=== PATIENT | male | born 1980 ===

== ENCOUNTER 2025-04-10 09:18 | Emergency (ER) | payer MEDICAID, SELFPAY ==
[2025-04-10 09:21] VITALS: BP 147/72; PULSE 97; RESP 16; TEMP 36.9; O2SAT 93; BMI 33.5
[2025-04-10 09:32] VITALS: BP 147/72; PULSE 97; RESP 16; TEMP 36.9; O2SAT 93
--- NOTE | 2025-04-10 09:36 | PC.NURSE ---
44 M presents to ED with ulcer on buttocks x 1 week, unknown cause. Pt denies any drainage at the site, c/o 5/10 pain. Pt is ambulatory, A+Ox4, calm, cooperative. RR even and unlabored, denies CP or SOB.
--- NOTE | 2025-04-10 10:32 | ED.SKABFB ---
HPI - Skin/Abscess/Foreign Bdy General Chief complaint: Skin/Abscess/Foreign Body Stated complaint: abscess lower back Time Seen by Provider: 04/10/25 09:46 Source: patient, RN notes reviewed and old records reviewed Mode of arrival: ambulatory History of Present Illness ED Provider: Dorita Nicole PA-C HPI narrative: 44-year-old male w/ past medical history DM presenting to the ED complaining of painful abscess to low back/upper buttock x 2 weeks. Patient admits to similar symptoms in the past, failed to follow up with General surgery outpatient. Denies active drainage, fever/chills, difficulty having BM, dysuria/hematuria Related Data Previous Rx's ?Medication ?Instructions ?Recorded cephalexin 500 mg capsule 500 mg PO QID 7 days #28 caps 04/10/25 doxycycline hyclate 100 mg tablet 100 mg PO BID 7 days #14 tabs 04/10/25 Allergies Allergy/AdvReac Type Severity Reaction Status Date / Time No Known Allergies Allergy Verified 04/10/25 09:23 Review of Systems Review of Systems: Yes all other systems are reviewed and are negative Constitutional: Constitutional: Reports as per [facility] Past Medical History Attestation statement: The following information was validated with the patient. Source: old records reviewed Social History Social History Smoked in Last 30 Days: No Use of substances other than those prescribed or required for medical reasons: No Advance Directives: No Advance Directives Information Provided: Yes Do you have a plan to hurt others: No Plan Physical Exam Vital Signs: Vital Signs: Last Vital Signs Temp 0 F L 04/10/25 12:21 Pulse 101 H 04/10/25 12:21 Resp 18 04/10/25 12:21 BP 133/80 04/10/25 12:21 Pulse Ox 93 04/10/25 12:21 O2 Del Method Room Air 04/10/25 09:32 BMI result Body Mass Index 33.5 Const: General: cooperative, healthy appearing and no acute distress Orientation/consciousness: patient oriented x3 Limitations: no limitations HEENT: Head: Yes normal to inspection and Yes atraumatic Ears: hearing grossly normal bilaterally General nose exam: Normal external nose present Face and sinus: Yes normal facial exam Eyes: General: appearance normal, both eyes and all related structures EOM: EOMs intact bilaterally Neck: Neck: Yes normal visual inspection and Yes no meningeal signs Resp: Effort & Inspection: normal respiratory effort and no respiratory distress Cardio: Rate: regular rate Skin: Other: + fluctuant and indurated pilonidal cyst appreciated with surrounding cellulitis. Tender to palpation. No streaking. No perianal/perirectal involvement Rashes: no rashes Neuro: General: patient oriented x3, tone normal and no meningeal signs Cranial nerves: Yes CN's II-XII intact bilaterally Gait exam (Neuro): Normal gait present Extrem: General: Yes normal to inspection Course Course Course Narrative: -I&D successful. Packing placed. Patient to return to the ED in 2 or 3 days for packing removal. Recommended general surgery follow up. Results discussed with patient including worrisome signs and symptoms and strict return precautions, and when to return to the emergency department. They verbalized understanding and feel safe for discharge at this time. Medications Administered Discontinued Medications Generic Name Dose Route Start Last Admin Trade Name Freq PRN Reason Stop Dose Admin Lidocaine/Epinephrine 10 ml 04/10/25 09:54 04/10/25 10:38 Lidocaine Hcl 1%/Epi 1:100,000 20 Ml Vial INFILTRATI 04/10/25 09:55 10 ml ONCE ONE Administration Medical Decision Making Medical Decision Making [facility] Narrative: 44-year-old male w/ past medical history DM presenting to the ED complaining of painful abscess to low back/upper buttock x 2 weeks. On exam vital signs stable, NAD, nontoxic appearing, physical exam as noted above with pilonidal cyst with overlying cellulitis. Will need I&D. No evidence of Nader's gangrene at this time. No evidence of perirectal/perianal abscess Plan: I & D, p.o. antibiotics, general surgery follow-up Please refer to course for remaining clinical decision making, interpretation of labs/imaging results, and discussions with consultants and/or family members. Differential Diagnosis Differential Diagnoses: The differential diagnosis associated with the presentation includes As above External Record Review External record reviewed: Inpatient record, Office record, Outpatient record, Prior outpatient labs, Prior outpatient radiology, Primary care record and Outside ED record Tests considered The following testing was considered but not selected: As above Prescription Management I considered prescription management with: Pain Medication and Antibiotic Chronic Conditions Patient?s care impacted by: Diabetes Social Determinants Patient?s care significantly limited by Social Determinants of Health including: Other Social Determinant of Health Procedures Abscess I/D Site: other (Pilonidal) Local Anesthetic: lidocaine 1% Amount of anesthesia used (mL): 4 Technique: incised with blade Sent for culture/gram staining?: Yes Packing used?: iodoform Discharge Plan Discharge Clinical Impression: Pilonidal cyst, Cellulitis Patient Disposition: Home, Self-Care Instructions: Cellulitis (ED) Additional Instructions: Your abscess was drained today in the ED Packing was placed. Please return in 2 or 3 days for packing removal Doxycycline and Keflex are antibiotics please take as prescribed until completion Please have close follow-up with your doctor as well as general surgery If area is growing, continues to drain, you have fever, chills, inability to have bowel movement or urinate return to the emergency department Prescriptions: New cephalexin 500 mg capsule 500 mg PO QID 7 Days Qty: 28 0RF doxycycline hyclate 100 mg tablet 100 mg PO BID 7 Days Qty: 14 0RF Referrals: [facility] General Surgeons [Provider Group, General Surgery] - 1 week Physician,Nonstaff [Primary Care Provider, Medical] - 2 days Referral Note: For packing removal Interventions: ED Discharge Assessment Last Done: 04/10/25 12:21 Discharge Date/Time: 04/10/25 12:22 Print Language: Bulgarian
[2025-04-10] MEDS: Lidocaine HCl 1%/Epi 1:100,000 20 ML VIAL 10 ML INFILTRATI (10:38)
[2025-04-10 12:19] VITALS: BP 133/80; PULSE 101; RESP 18; O2SAT 93
[2025-04-10 12:21] VITALS: BP 133/80; PULSE 101; RESP 18; TEMP -17.7; TEMP 0; O2SAT 93
== END 2025-04-10 12:22 | disposition home or self-care (01) ==
PROVIDERS: Emergency Provider Emergency Medicine
DX: L02.212 Cutaneous abscess of back [any part, except buttock and flank] (principal); L03.312 Cellulitis of back [any part except buttock and flank]; M54.50 Low back pain, unspecified
CPT/HCPCS: 10060; 99284; J2004

== ENCOUNTER 2025-04-12 10:01 | Emergency (ER) | payer MEDICAID, SELFPAY ==
--- OUTSIDE RECORDS SUMMARY | 2013-09-12 06:45 | XMS_ITS | Continuity of Care Document ---
Author Organization Carlos Magallon [facility] Address [address] [place] [address] Phone Care Team Providers Care Industrial Hygienist Name Role Phone Unavailable Unavailable Unavailable Medications [...] Diagnostic Eval (no Medical Service) Carlos Gilman [facility], [address] [place] [address],[address], [place], [place], [id number], [place] tel:[phone] [facility] depression (chief complaint)a nxiety (chief complaint)s ubstance abuse (chief complaint) Major depressive affective disorder, recurrent episode, moderate degreePanic disorder without agoraphobiaO pioid type dependence, unspecified useOther unknown and unspecified cause of morbidity or mortality 4 No Information OFFICE/OUTPAT IENT VISIT, EST [facility], [address], [place], [place], [id number], [place] tel:[phone] [facility] INITIAL VISIT (chief complaint)k nee pain (chief complaint)c hronic conditions (chief complaint) Opioid type dependence, unspecified useMajor depressive affective disorder, single episode, unspecified degreeHypert ension, BenignUnspec ified viral hepatitis C without hepatic comaBilatera l chronic knee pain 4 Philip Kortney. [address] [place] [address], [id number]. tel:[phone] OFFICE/OUTPAT IENT VISIT, EST [facility], [address], [place], [place], [id number], [place] tel:[phone] [facility] Anxiety/ Depression (chief complaint)h ypertension (follow up) (chief complaint)H epatitis C (chief complaint)S ubstance Abuse (chief complaint) Hypertension , BenignMajor depressive affective disorder, recurrent episode, severe degree, without mention of psychotic behaviorUnsp ecified viral hepatitis C without hepatic comaHeroin addiction 3 No Information [facility], [address], [place], [place], [id number], [place] tel:[phone] [facility] Elevated blood pressure reading without diagnosis of hypertension 0 No Information [facility], [address], [place], [place], [id number], [place] tel:[phone] Converted Locations No Information 0 Z-Converted Provider. . [facility], [address], [place], [place], [id number], [place] tel:[phone] [facility] NEED FOR PROPHYLACTIC VACCINATION AND INOCULATION, INFLUENZANee d for other specified prophylactic measure 0 No Information [facility], [address], [place], [place], [id number], [place] tel:[phone] [facility] Opioid type dependence, unspecified use 8 Z-Converted Provider. . [facility], [address], [place], [place], [id number], [place] tel:[phone] [facility] Posttraumati c stress disorder 8 Z-Converted Provider. . [facility], [address], [place], [place], [id number], [place] tel:[phone] [facility] Unspecified viral hepatitis C without hepatic comaRoutine general medical examination at a health care facility 8 No Information [facility], [address], [place], [place], [id number], [place] tel:[phone] [facility] Unspecified psychosis 8 Z-Converted Provider. . [facility], [address], [place], [place], [id number], [place] tel:[phone] [facility] Major depressive affective disorder, single episode, severe degree, specified as with psychotic behaviorMajo r depressive affective disorder, recurrent episode, severe degree, without mention of psychotic behavior 8 Z-Converted Provider. . [facility], [address], [place], [place], [id number], [place] tel:[phone] [facility] Depressive disorder, not elsewhere classified 8 No Information [facility], [address], [place], [place], [id number], [place] tel:[phone] [facility] Pain in joint involving lower leg [...]
--- OUTSIDE RECORDS SUMMARY | 2025-01-26 05:15 | XMS_ITS ---
Author Organization [facility] Address [address] [place] [address] Care Team Providers Care Pricing Intern Name Role Phone NO, PCP Primary Care Provider Roro Navarro Social History Sex Assigned At : Social History Observation Description Sex Assigned At Male Encounters Encounter Location Date Provider Diagnosis [facility] [address] [place] [id number] 01/26/2025 Roro Navarro Plan Of Treatment No Information Progress Notes * Yomi GOMEZDOB:04/1981 (44 yo M)Acc No.[id number]:01/26/2025 Case Management Patient: Cassie DESAI KEITH Yomi Provider: Mukul Navarro :1980 A ge:44 Y S ex:Male Date:01/26/2025 Address:[address] [facility] [place] [address], [address] [place] [address] Pcp:PCP NO Subjective: * Chief Complaints: * * Medical History: Objective: Assessment: Plan: * Treatment: * Images: Billing Information: * Visit Code: * Procedure Codes: Care Plan Details* * Electronic signature of Leo Navarro on 04/12/2025 at 12:47 PM EDT Sign off status: Pending * Provider: Mukul Navarro Date: 0 01/26/2025 Generated for Bhargav bedoya/Lulu/eTransmitting on: 1 12:47 PM EDT
[2025-04-12 10:10] VITALS: BP 154/92; PULSE 87; RESP 18; TEMP 36.1; O2SAT 96; BMI 29.9
--- NOTE | 2025-04-12 10:10 | ED.GENADULT ---
HPI - General Adult General Chief complaint: Skin/Abscess/Foreign Body Stated complaint: Wound Time Seen by Provider: 04/12/25 10:11 Source: patient Mode of arrival: ambulatory Limitations: no limitations History of Present Illness ED Provider: Dr. Diez HPI narrative: 44 yo m HTN, DM, here for re-evaluation of pilonidal cyst. He had the cyst drained 2 days ago. Removed packing by himself. Program sent him in for further evaluation. He does have follow up appointment with the surgical clinic Related Data Previous Rx's ?Medication ?Instructions ?Recorded acetaminophen 500 mg tablet 500 mg PO Q6H PRN fever or pain 04/10/25 (Tylenol Extra Strength) #14 tabs cephalexin 500 mg capsule 500 mg PO QID 7 days #28 caps 04/10/25 doxycycline hyclate 100 mg tablet 100 mg PO BID 7 days #14 tabs 04/10/25 ibuprofen 600 mg tablet 600 mg PO Q8H PRN fever or pain 04/10/25 #14 tabs Allergies Allergy/AdvReac Type Severity Reaction Status Date / Time No Known Allergies Allergy Verified 04/12/25 10:12 Review of Systems Review of Systems: Pertinent review of systems as mentioned in HPI. All other system otherwise negative. [facility] Past Medical History [facility] Narrative: Medical history as mentioned in [facility] Physical Exam ED Exam Exam: General: Pleasant, no distress, interacting appropriately Head: Normacephalic, atraumatic Buttocks: Indurated pilonidal cyst. Some erythema appears to be healing. No fluctuance mass Skin: Warm and dry Psychiatric: Appropriate mood and thoughts Vital Signs: Vital Signs - 24 hr 04/12/25 10:10 Temperature 97 F Pulse Rate 87 Respiratory Rate 18 Blood Pressure 154/92 H Pulse Oximetry 96 Oxygen Delivery Method Room Air BMI result Body Mass Index 29.9 Medical Decision Making Medical Decision Making [facility] Narrative: 44-year-old male history of hypertension diabetes history of recurrent pilonidal cysts presented hospital today for evaluation of his pilonidal cyst. It was drained approximately 2 days ago. No fever. He is taking antibiotics currently. He is still on antibiotic regimen. His program sent in for further evaluation. Patient has had removed the packing by himself. On evaluation the cyst appears to be indurated. However no fluctuant mass. Encouraged patient to continue take the antibiotic and follow up with the surgery follow up appointment. Patient agrees and understands this plan. All questions were addressed patient will be discharged Differential Diagnosis Differential Diagnoses: The differential diagnosis associated with the presentation includes Abscess, pilonidal cyst Chronic Conditions Patient?s care impacted by: Diabetes and Hypertension Discharge Plan Discharge Clinical Impression: Pilonidal cyst Patient Disposition: Home, Self-Care Prescriptions: No Action cephalexin 500 mg capsule 500 mg PO QID 7 Days Qty: 28 0RF doxycycline hyclate 100 mg tablet 100 mg PO BID 7 Days Qty: 14 0RF acetaminophen [Tylenol Extra Strength] 500 mg tablet 500 mg PO Q6H PRN (Reason: fever or pain) Qty: 14 0RF ibuprofen 600 mg tablet 600 mg PO Q8H PRN (Reason: fever or pain) Qty: 14 0RF Print Language: Montserratian
[2025-04-12 10:32] VITALS: BP 154/92; PULSE 87; RESP 18; TEMP 36.1; O2SAT 96
--- OUTSIDE RECORDS SUMMARY | 2025-04-12 12:48 | XMS_ITS | Patient Health Record ---
Author Organization [facility] Address [address] [place] [address] Care Team Providers Care [facility] Agency Director Name Role Phone NO, PCP Primary Care Provider Roro Navarro Unavailable Reason For Referral No Information Social History Sex Assigned At : Social History Observation Description Sex Assigned At Male Encounters Encounter Location Date Provider Diagnosis [facility] [address] [place], [place] [phone] 01/04/2025 Roro Navarro Plan Of Treatment No Information Insurance Providers Payer Name Payer Address Payer Phone Subscriber Number Group Number Insured Name Patient Relationship to Insured Coverage Start Date Coverage End Date [place] Medicaid Standard [address] [place] [address] Yomi Holly Self - patient is the insured
== END 2025-04-12 10:32 | disposition home or self-care (01) ==
PROVIDERS: Emergency Provider Student in an Organized Health Care Education/Training Program
DX: L05.91 Pilonidal cyst without abscess (principal); Z48.00 Encounter for change or removal of nonsurgical wound dressing
CPT/HCPCS: 99282

== ENCOUNTER 2025-04-18 10:00 | Outpatient (AMB) | payer MEDICAID, SELFPAY ==
--- OUTSIDE RECORDS SUMMARY | 2013-09-12 05:45 | XMS_ITS | Continuity of Care Document ---
Author Organization Carlos Magallon [facility] Address [address] [place] [address] Phone Care Team Providers Care Producer Name Role Phone Unavailable Unavailable Unavailable Medications Medication Instructions Dosage Effective Dates (start - stop) Status Comments methadone 10 mg/5 mL Oral Soln 50 mg daily - Active mirtazapine 15 mg tablet take 1 tablet (15MG) by oral route every day before bedtime 15 MG - Active Zyprexa 10 mg tablet take 1 tablet (10MG ) by oral route every day - Active Procedures Procedure Date Psychiatrist Diagnostic Eval (no Medical Service) OFFICE/OUTPATIENT VISIT, EST OFFICE/OUTPATIENT VISIT, EST FLU VACCINE, 3 YRS & >, IM Advance Directives Directive Yes / No Effective Date File Name Resuscitation Not Answered N/A N/A Life Support Not Answered N/A N/A Intubation Not Answered N/A N/A Antibiotics Not Answered N/A N/A IV Fluid Support Not Answered N/A N/A Tube Feed Not Answered N/A N/A Other Directive N/A N/A WARNING:The information contained in this section is historical and is provided for information only and does not constitute a legal document or any assurance that the information is still accurate. Please verify the information with the black of the legal document before using it for clinical purposes. Encounters Encounter Description Practice Location Reason(s) For Visit Diagnoses Date Provider Providers Copied on Encounter Psychiatrist Diagnostic Eval (no Medical Service) Carlos Gilman [facility], [address] [place] [address],[address], [place], [place], [id number], [place] tel:[phone] [facility] depression (chief complaint)a nxiety (chief complaint)s ubstance abuse (chief complaint) Major depressive affective disorder, recurrent episode, moderate degreePanic disorder without agoraphobiaO pioid type dependence, unspecified useOther unknown and unspecified cause of morbidity or mortality 4 No Information OFFICE/OUTPAT IENT VISIT, EST [facility], [address], [place], [place], [id number], [place] tel:[phone] [facility] INITIAL VISIT (chief complaint)k nee pain (chief complaint)c hronic conditions (chief complaint) Opioid type dependence, unspecified useMajor depressive affective disorder, single episode, unspecified degreeHypert ension, BenignUnspec ified viral hepatitis C without hepatic comaBilatera l chronic knee pain 4 Philip Kortney. [address] [place] [address], [id number]. tel:[phone] OFFICE/OUTPAT IENT VISIT, EST [facility], [address], [place], [place], [id number], [place] tel:[phone] [facility] Anxiety/ Depression (chief complaint)h ypertension (follow up) (chief complaint)H epatitis C (chief complaint)S ubstance Abuse (chief complaint) Hypertension , BenignMajor depressive affective disorder, recurrent episode, severe degree, without mention of psychotic behaviorUnsp ecified viral hepatitis C without hepatic comaHeroin addiction 3 No Information [facility], [address], [place], [place], [id number], [place] tel:[phone] [facility] Elevated blood pressure reading without diagnosis of hypertension 0 No Information [facility], [address], [place], [place], [id number], [place] tel:[phone] Converted Locations No Information 0 Z-Converted Provider. . [facility], [address], [place], [place], [id number], [place] tel:[phone] [facility] NEED FOR PROPHYLACTIC VACCINATION AND INOCULATION, INFLUENZANee d for other specified prophylactic measure 0 No Information [facility], [address], [place], [place], [id number], [place] tel:[phone] [facility] Opioid type dependence, unspecified use 8 Z-Converted Provider. . [facility], [address], [place], [place], [id number], [place] tel:[phone] [facility] Posttraumati c stress disorder 8 Z-Converted Provider. . [facility], [address], [place], [place], [id number], [place] tel:[phone] [facility] Unspecified viral hepatitis C without hepatic comaRoutine general medical examination at a health care facility 8 No Information [facility], [address], [place], [place], [id number], [place] tel:[phone] [facility] Unspecified psychosis 8 Z-Converted Provider. . [facility], [address], [place], [place], [id number], [place] tel:[phone] [facility] Major depressive affective disorder, single episode, severe degree, specified as with psychotic behaviorMajo r depressive affective disorder, recurrent episode, severe degree, without mention of psychotic behavior 8 Z-Converted Provider. . [facility], [address], [place], [place], [id number], [place] tel:[phone] [facility] Depressive disorder, not elsewhere classified 8 No Information [facility], [address], [place], [place], [id number], [place] tel:[phone] [facility] Pain in joint involving lower leg 200 8 Z-Converted Provider. . Family History Family Member Type Diagnosis Age At Onset Father Problem (finding) coronary arterioscleros is 63 Mother Problem (finding) hypertension Mother Problem (finding) diabetes melli tus in first degree relative Immunizations Vaccine Date Status Comments Influenza Vaccine administered Source: Ne w Immunization Record Payers Payer name Insurance type Covered republican ID Authoriza tion(s) No Information Social History Type Description Quantity Date Captured Comments Alcohol Use Details No Caffeine Use Details coffee Tobacco Use Status No Information Smoking Status Current every day smoker 2013 Sex Male Gender Identity Male Chief Complaint And Reason For Visit From encounter dated '09/12/2013 10:45'. depression (chief complaint) anxiety (chief complaint) substance abuse (chief complaint) Reason For Referral Reason For Referral No Information Plan Of Treatment Date Type Action Status Goal Unhealthy drug use screening . Due on due Goal BPRS. Due on due Goal Document SOGI Information. D ue on due Goal Td vaccine. Due on 14 due Goal IAP. Due on due Goal DAST. Due on due Goal PHQ-9. Due on du e Goal Lipid Panel. Due on 014 due Goal ELECTROCARDIOGRAM, COMPLETE. Due on due Goal Hemoglobin A1C. Due on due Goal Influenza vaccine. Due on due Goal Tdap. Due on due Goal APE. Due on due History Of Present Illness Encounter Date Complaint History Of Prese nt Illness No Information Functional Status Date Functional Assessmen t No Information Instructions Date Instruction Additional Infor mation No Information Assessments Type Assessment Date No Information Patient Care Teams Name Effective Dates (start - stop) Status Members No Information
--- OUTSIDE RECORDS SUMMARY | 2025-01-26 04:15 | XMS_ITS ---
Author Organization [facility] Address [address] [place] [address] Care Team Providers Care Manager Shipping Name Role Phone NO, PCP Primary Care Provider Roro Navarro [phone] Social History Sex Assigned At : Social History Observation Description Sex Assigned At Male Encounters Encounter Location Date Provider Diagnosis [facility] [address] [place] [id number] 01/26/2025 Roro Navarro Plan Of Treatment No Information Progress Notes * Yomi GOMEZDOB:04/1981 (44 yo M)Acc No.[id number]:01/26/2025 Case Management Patient: Cassie DESAI KEITHJagdeepYomi Provider: Mukul Navarro :1980 A ge:44 Y S ex:Male Date:01/26/2025 Address:[address] [facility] [place] [address], [address] [place] [address] Pcp:PCP NO Subjective: * Chief Complaints: * * Medical History: Objective: Assessment: Plan: * Treatment: * Images: Billing Information: * Visit Code: * Procedure Codes: Care Plan Details* * Electronic signature of Leo Navarro on 04/18/2025 at 11:32 AM EST Sign off status: Pending * Provider: Mukul Navarro Date: 0 01/26/2025 Generated for Bhargav bedoya/Lulu/Josefina on: 1 06/18/2024 11:32 AM EST
--- OUTSIDE RECORDS SUMMARY | 2025-04-13 07:40 | XMS_ITS | Encounter Summary ---
Author Organization [employer] Address [address] [place] [address] 7 [place] [address] Care Team Providers Care Intervention Manager Name Role Phone Joann Hardy Primary Care Provider [phone] Reason for Referral * Consultation (Routine) - Pending Review Specialty Diagnoses / Procedures Referred By Lis t Referred To Contact Optometry Diagnoses Type 2 diabetes mellitus with hyperglycemia, without long-term current use of insulin (HCC) Joann Hardy AGNP [address] [place] [address] Phone: tel: fax: Referral ID Status Reason Start Date Expiration Date Visits Requested Visits Authorized [id number] Pending Review Consult and Treat 04/13/2026 1 1 Reason for Visit * Reason Comments Follow-up Encounter Details Date Type Department Care Team ([facility] st Contact Info) Description 04/13/2025 8:40 AM EDT Office Visit [facility] [address] [place] [phone] Joann Hardy AGNP [address] [place] [address] Type 2 diabetes mellitus with hyperglycemia, without long-term current use of insulin (HCC) (Primary Dx) Social History Tobacco Use Types Packs/Day Years Used Date Smoking Tobacco: Former Cigarettes Passive Smoke Exposure: Never Smokeless Tobacco: Never Tobacco Cessation:Counseling Given: Not Answered Alcohol Use Standard Drinks/Week Comments Not Currently 1 (1 standard drink = 0.6 oz pur e alcohol) Alcohol Answer Date Recorded Q1: How often do you have a drink containing alc ohol? 1 12/21/2024 Q2: How many drinks containi ng alcohol do you have on a typical day when you are drinking? 0 12/21/2024 Q3: How often do you have six or more drinks on one occasion? 1 12/21/2024 Depression Answer Date Recorded Patient Health Questionnaire-9 Score 7 12/14/2024 Patient Health Questionnaire-9 Score 7 12/14/2024 Last PHQ-9: Questionnaire Data Not on file 0 12/14/2024 Housing Stability Answer Date Recorded What is your housing situation today? I do not have housing (Staying with others, in a hotel, in a residential, living outside on the street, on a beach, in a car, or in a park 04/13/[address] you li ve. Do you have problems with any of the following? None of the above 04/13/2025 Food Insecurity Answer Date Recorded Within the past 12 months, y ou worried that your food would run out before you got money to buy more: Often true 04/13/2025 Within the past 12 months,th e food you bought just didn't last and you didn't have enough money to get more: Often true Transportation Answer Date Recorded In the past 12 months, has l ack of transportation kept you from medical appts, meetings, work or from getting things needed for daily living? Yes, it has kept me from medical appointments or getting medications. 04/13/2025 Utilities Answer Date Recorded In the past 12 months, has t he electric, gas, oil or water company threatened to shut off services in your home? I am not sure 04/13/2025 Depression Answer Date Recorded Patient Health Questionnaire-2 Score 2 12/14/2024 Internet Access Answer Date Recorded Internet Access Q1 Yes 04/13/2025 Internet Access Q2 Not on file 04/13/2025 Sex and Gender Information Value Date Recorded Sex Assigned at Male 12/31/2023 9:39 AM EDT Legal Sex Male 9:38 AM EDT Gender Identity Male 12/31/2023 9:39 AM EDT Sexual Orientation Straight 12/31/2023 9: 39 AM EDT documented as of this encounter Last Filed Vital Signs Vital Sign Reading Time Taken Comments Blood Pressure 118/76 04/13/2025 9:08 AM EDT Pulse 84 04/13/2025 9:08 AM EDT Temperature 36.4 C (97.6 F) 04/13/2025 9:08 AM EDT Respiratory Rate 16 04/13/2025 9:08 AM EDT Oxygen Saturation 94% 04/13/2025 9:08 AM EDT Inhaled Oxygen Concentration - - Weight 120 kg (264 lb 12.8 oz) 04/13/2025 9:08 A M EDT Height - - Body Mass Index 34 12/21/2024 9:36 AM EDT documented in this encounter Plan of Treatment Upcoming Encounters Date Type Department Care Team (Late st Contact Info) Description 04/24/2025 10:40 AM EST Office Visit [facility] [address] [phone] Alyx Ferrer, [address] [phone] 06/13/2025 1:20 PM EST Office Visit [address] [phone] Joann Hardy, [address] [phone] Scheduled Referrals Name Type Priority Associated Diagnoses Orde r Schedule Referral to Optometry Outpatient Referral Routine Type 2 diabetes mellitus with hyperglycemia, without long-term current use of insulin (HCC) Expected: 04/13/2025 (Approximate), Expires: 04/13/2026 documented as of this encounter Procedures Procedure Name Priority Date/Time Associated Diagnosis Comments POCT GLYCOSYLATED HEMOGLOBIN (HGB A1C) Routine 04/13/2025 9:27 AM EDT Type 2 diabetes mellitus with hyperglycemia, without long-term current use of insulin (HCC) documented in this encounter Results * (ABNORMAL) POCT A1C (manually Enter/Edit Results) (04/13/2025 9:27 AM EDT) Hemoglobin A1C 11.2(A) 4.0 - 5.7 % Blood Capillary blood specimen / Unknown 04/13/2025 9:27 AM EDT Joann FELICIANO POINT OF CARE TEST ENTER/ EDIT ORDERABLES Final Result documented in this encounter Visit Diagnoses Diagnosis Type 2 diabetes mellitus with hyperglycemia, without long-term current use of insulin (HCC)- Primary documented in this encounter Additional Health Concerns Assessment Noted Time PHQ-9 Depression Total Score: 7 12/15/19 9:43 AM EDT documented as of this encounter Care Teams Intervention Manager Relationship Specialty Start Date End Date Joann Hardy AGNP [address] [place] [address] PCP - General Internal Medicine 12/14/24 VIRAL OLIVIA [place] 10/13/24 documented as of this encounter
--- NOTE | 2025-04-18 10:01 | A.OFFVIS_ITS ---
Vital Signs 04/18/25 10:10 Height 6 ft 2 in Weight 266 lb BMI 34.1 BP 132/73 Blood Pressure Location Rt brachial Position Sitting Pulse 101 H Intake Visit Reasons: back abscess/had I&D in ER Intake Note: Patient here to follow up from ER visit I&D back abscess. Patient c/o: bothersome as he is constantly putting pressure on it due to sitting for meetings 3x a day. Completed txt Doxy and Keflex X7d. Commissions Analyst Required: No Accompanied by: Self / Same As Patient Allergies No Known Allergies Allergy (Verified 04/18/25 10:09) HPI HPI back abscess/had I&D in ER: Details: 44-year-old male with a history of diabetes, anxiety/depression, hypertension, heart murmur schizophrenia referred to general surgery by the [facility] emergency department following multiple visits for pilonidal cysts. Patient was seen on 04/10/2025 for painful abscess of the upper buttock area. This was incised and drained, patient took a week of doxycycline and Keflex for which he has already completed. This area was packed and subsequently removed 2 days later at a follow-up ED visit. He states it is no longer draining, no longer causing him pain but has happened multiple times in his life and he wants to get this removed to prevent it from happening again. States that used to happen every 6 months, now happening about every year. He states he is currently staying in a TSS program [facility]. His primary care is located at [address] [place] [address] and [facility]. We will reach out regarding his medical records. Denies surgical history. Current medications include Seroquel, citalopram, clonazepam, metformin, lisinopril, atorvastatin, Lantus and lispro, methadone 100 mg per day. 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 History of IVDA. Denies allergies. Patient is a smoker but denies recent smoking due to his program. Denies recent alcohol or drug use. Does have a history of substance abuse. FOR[facility]LY [facility], [facility] Medical History (Updated 04/18/25 @ 11:27 by Dano Pineda PA-C) Pilonidal cyst Review of Systems Const All systems reviewed & are unremarkable except as noted in HPI and below Physical Exam Vital Signs: Last Vital Signs Pulse 101 H 04/18/25 10:10 BP 132/73 04/18/25 10:10 BMI result Body Mass Index 34.1 Const General: comfortable and no acute distress Orientation/consciousness: patient oriented x3 GI Other: Markedly indurated area at the superior aspect of the gluteal cleft, nontender, small sinus tract in the left midline of the gluteal cleft no active drainage, no fluid collection, Neuro General: patient oriented x3 Assessment & Plan Assessment & Plan (1) Pilonidal cyst: Code(s): L05.91 - Pilonidal cyst without abscess Category: Medical Plan 44-year-old male with a history of diabetes, anxiety/depression, hypertension, heart murmur, schizophrenia referred to general surgery by the [facility] emergency department following multiple visits for pilonidal cysts. Patient has had recurrent pilonidal cysts for many years. Most recently on on April 10 where he had an I and D, completed a week of doxycycline and Keflex. He was referred to us for further management. on exam the area has improved now is markedly indurated, not actively draining and nontender. There was a visible tract on the left midline in the apex of the gluteal cleft. He is interested in surgical intervention to get this removed as these recurrences are very bothersome, especially when he has to sit for long periods of time. I introduced the patient to our surgeon Dr. Townsend who discussed the risks benefits and alternatives of the procedure, patient understands and wants to proceed. A surgical booking slip was completed, our home health scheduler we will reach out to the patient to schedule his procedure. Again, we will try to obtain his records from his PCP at the [facility] in [place]. We discussed what to expect postoperatively in the importance of keeping this area clean after bowel movements and clean and dry overall. Medications: Discontinued doxycycline hyclate Discontinued Reason: Patient Completed Course 100 mg PO BID 7 days 14 tabs 0RF cephalexin Discontinued Reason: Patient Completed Course 500 mg PO QID 7 days 28 caps 0RF Coding Level of Care Code New Pt Level 4 (23187) Diagnoses Pilonidal cyst L05.
[2025-04-18 10:10] VITALS: BP 132/73; PULSE 101; BMI 34.1
--- OUTSIDE RECORDS SUMMARY | 2025-04-18 11:32 | XMS_ITS | Clinical Summary ---
Author Organization [employer] Address [address] [place] [address] Care Team Providers Care Alteration Workroom Supervisor Name Role Phone Joann Hardy SAMANTHALiudmila Primary Care Provider [phone] Allergies No known active allergies Medications escitalopram (Lexapro) 10 MG tablet Take 10 mg by mouth Once per day. 4 Active clonazePAM (KlonoPIN) 1 MG tablet Take 1 mg by mouth if needed in the morning, at noon, and at bedtime for anxiety. Active methadone (Dolophine) 10 MG/ML solution Take 100 mg by mouth Once per day. Spectrum daily dosing Active lisinopril 5 MG tabletIndicati ons:HTN, goal below 130/80 Take 1 tablet (5 mg) by mouth Once per day. 90 tablet 3 4 Active QUEtiapine (SEROquel) 300 MG tablet Take 300 mg by mouth at bedtime. 5 Active naloxone (Narcan) 4 mg/0.1 mL nasal spray Administer 4 mg into affected nostril(s) if needed. 5 Active venlafaxine (Effexor) 37.5 MG tablet Take 37.5 mg by mouth 3 times daily. 5 Active QUEtiapine (SEROquel) 100 MG tablet Take 100 mg by mouth 3 times daily. 5 Active metFORMIN (Glucophage) 500 MG tabletIndicati ons:Type 2 diabetes mellitus with hyperglycemia, without long-term current use of insulin (HCC) Take 1 tablet (500 mg) by mouth with breakfast for 7 days, THEN 1 tablet (500 mg) with breakfast and with evening meal. 180 tablet 5 Active pen needle 31G x 5 mm miscIndication s:Type 2 diabetes mellitus with hyperglycemia, without long-term current use of insulin (HCC) Use as instructed 100 each 12 5 12/22/19 26 Active Alcohol Swabs (Alcohol Prep) padsIndication s:Type 2 diabetes mellitus with hyperglycemia, without long-term current use of insulin ([facility]) Apply 1 Pad topically at bedtime. 100 each 3 5 Active bacitracin 500 UNIT/GM ointment Apply topically 2 times daily. 14 g 5 Active insulin glargine (Lantus SoloStar) 100 UNIT/ML penIndications :Type 2 diabetes mellitus with hyperglycemia, without long-term current use of insulin ([facility]) Inject 10 Units under the skin at bedtime. 3 mL 2 5 Active atorvastatin (Lipitor) 10 MG tablet Take 10 mg by mouth Once per day. 5 Active cloNIDine (Catapres) 0.1 MG tablet Take 0.1 mg by mouth 2 times daily. 5 04/13/20 25 Discontinu ed(Therapy completed) mirtazapine (Remeron) 15 MG tablet Take 15 mg by mouth at bedtime. 5 04/13/20 25 Discontinu ed(Therapy completed) hydrOXYzine pamoate (Vistaril) 50 MG capsule Take 50 mg by mouth every 12 (twelve) hours if needed for anxiety. 5 04/13/20 25 Discontinu ed(Therapy completed) fenofibrate (Tricor) 48 MG tabletIndicati ons:Hypertrigl yceridemia Take 1 tablet (48 mg) by mouth Once per day. 30 tablet 11 5 04/13/20 25 Discontinu ed(Therapy completed) Active Problems Problem Noted Date Diagnosed Date Type 2 diabetes mellitus wit h hyperglycemia, without long-term current use of insulin 12/21/2024 Overview (12/21/2024): Diabetes Mellitus type II, under poor control. 1. Rx changes: Stop sliding scale. Start metformin 500mg daily, increase to BID after 1 week. Start Lantus 10 units HS. 2. Education: Reviewed 'ABCs' of diabetes management (respective goals in parentheses): A1C (<7), blood pressure (<130/80), and cholesterol (LDL <100). 3. Compliance at present is estimated to be adequate. Efforts to improve compliance (if necessary) will be directed at dietary modifications: LSM discussed, increased exercise, and regular blood sugar monitorin times daily. 4. Referral placed to [facility] DM team for titration and CGM. 5. Follow up: 2 weeks with PCP as scheduled. 6. Patient Pass education provided on Diabetes Hypertriglyceridemia 12/21/2024 Overview (12/21/2024): Start fenofibrate. Recheck fasting lipids in 1 month (ordered). Change to statin once triglycerides are within normal range. Pilonidal cyst with abscess 12/21/2024 Overview (12/21/2024): Mild warmth, swelling and redness. Bactrim and bacitracin Rx'd. May require I&D- will f/u if symptoms worsen. Patient was education about red flag warning signs for which they would need to seek emergency medical attention. Educated to follow up with new or worsening symptoms. HTN, goal below 130/80 03/18/2024 Overview (12/14/2024): Diagnosed 02/2025. Discussed control to prevent kidney disease. Well controlled today Continnue lisinopril 5mg Urine microal completed today Wrote down instructions for the lab again, labs ordered at last visit He does not have any abdominal flank pain or chest pain now but we discussed if this does return then he needs to go to the hospital as I am worried this is related to uncontrolled blood pressure and possibly cardiac disease. Assessment & Plan (03/20/2024 9:50 AM EDT): New diagnosis. Discussed control to prevent kidney disease. Start lisinopril 5mg Urine microal at next visit when BP controlled Wrote down instructions for the lab again, labs ordered at last visit He does not have any abdominal flank pain or chest pain now but we discussed if this does return then he needs to go to the hospital as I am worried this is related to uncontrolled blood pressure and possibly cardiac disease. Will get EKG at next visit and requested patient completed the blood work as previously ordered. Sheltered homelessness 03/01/2024 Overview (12/14/2024): Currently at [facility] TSS program. Happy with living situation right now. Assessment & Plan (03/01/2024 3:58 PM EDT): Currently living in a rooming house after being and [employer] retirement. Has [facility] case management. Happy with living situation right now. Cigarette nicotine dependence without complicati on 02/19/2024 Overview (12/14/2024): Tobacco Counseling The patient smokes cigarettes but less now due to TSS program and does not yet desire to quit. Open to future discussion. Assessment & Plan (03/01/2024 3:47 PM EDT): Tobacco Counseling The patient smokes cigarettes and does not yet desire to quit. Open to future discussion. Heart murmur 02/19/2024 Overview (12/14/2024): Echo not yet completed, requested expedite today. EKG completed and comparable to 09/2024 [facility] EKG. Assessment & Plan (03/01/2024 3:49 PM EDT): Patient has no knowledge of prior murmur. Ordering ECHO for evaluation given concurrent leg swelling and concern for HF. Leg swelling 02/19/2024 Overview (12/14/2024): Resolved at this time. There is a possibility for peripheral vascular disease for this patient given comorbidities, however he is fairly young. Evaluating for liver, kidney, heart failure. Echo ordered as above. Holding off on compression socks until etiology is a bit more clear. Assessment & Plan (03/01/2024 3:51 PM EDT): Obtaining labs as below on this patient to evaluate leg swelling. There is a possibility for peripheral vascular disease for this patient given comorbidities, however he is fairly young. Evaluating for liver, kidney, heart failure. Echo ordered as above. Holding off on compression socks until etiology is a bit more clear. MRSA colonization 02/19/2024 Schizoaffective disorder, bipolar type (CMS/HCC) 06/24/2017 Overview (12/14/2024): Pt followed at [facility] for depression and anxiety. - Continue Clonazepam 1 mg TID (always takes in morning and at night, third dose is as needed) and Seroquel 300mg HS and 100 mg TID prescribed by outside psychiatrist ([facility]) Assessment & Plan (03/18/2024 1:43 PM EDT): PHQ9 positive but he is under care with psychiatrist and therapist. Assessment & Plan (02/19/2024 1:30 PM EDT): Follows with: Cristy Rodney [address] [place] [address] list updated. PDMP reviewed. 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 - Continue Methadone 75 mg daily - Support provided on sobriety History of hepatitis C 06/22/2017 Overview (12/14/2024): HCV viral load Negative 2010 Verbal consent obtained for HIV & hepatitis screening. Assessment & Plan (03/01/2024 3:54 PM EDT): HCV viral load Negative 2010 Verbal consent obtained for HIV & hepatitis screening. Resolved Problems Problem Noted Date Diagnosed Date Resolved Date Health care maintenance 06/24/2017 090 11/2023 Overview (02/19/2024): Last Assessment & Plan: 36 yo M with current IVDU, Hep C, depression/anxiety here for a NPE/CPE. Has not been to a PCP in many years. We do not have vaccine records but pt believes it has been > 10 years since he had a TDap vaccine. Declines flu. - Tdap (ADACEL/BOOSTRIX) vaccine 0.5 mL IM (age 7 or greater) - Lipid panel; Future - Hemoglobin A1c; Future Encounters Date Type Department Care Team Description 04/13/2025 8:40 AM EDT Office Visit [facility] the [facility] [address] [place] [address] Joann Hardy AGNP Type 2 diabetes mellitus with hyperglycemia, without long-term current use of insulin (HCC) (Primary Dx) 01/25/2025 Telephone [facility] for the [facility] [address] [place] [address] Joann Hardy AGNP No Show (called pt to r/s no show, left pt voice mail will also mail NO SHOW reminder) 01/19/2025 Patient Outreach Family [place] Case Management [address] [place] [address] [place] [facility] - Outreach (C3 enrollment) from Last 3 Months Immunizations Immunization Administration Dates Next Due Influenza, IIV3, injectable 05/07/2010 Tdap 06/22/2017 Family History Medical History Relation Name Comments Diabetes Brother Diabetes Father Heart disease Father Kidney failure Father Diabetes Mother Heart attack Mother Liver cancer Neg Hx Liver disease Neg Hx Relation Name Status Comments Brother Alive Father Mother Social History Tobacco Use Types Packs/Day Years [...] with others, in a hotel, in a retirement, living outside on the street, on a [...] Orientation Straight 12/31/2023 9: 39 AM EDT Last Filed Vital Signs Vital Sign Reading [...] oz) 04/13/2025 9:08 A M EDT Height 188 cm (6' 2 ) 12/21/2024 9:36 AM EDT Body Mass Index 34 12/21/2024 9:36 AM EDT Plan of Treatment Upcoming Encounters Date Type Department Care Team (Late st Contact Info) Description 04/24/2025 10:40 AM EST Office Visit [facility] for the [facility] [address] [place] [address] Alyx Ferrer, [facility] [address] [place] [id number] 06/13/2025 1:20 PM EST Office Visit [facility] for the [address] [address] Joann Hardy, [facility] [address] [place] [address] Health Maintenance Due Date Last Done Comments Diabetes: Foot Exam 1990 Eye Exam 1990 Pneumococcal Vaccine: Pediatrics (0 to 5 Years) and At-Risk Patients (6 to 49) Years (1 of 2 - PCV) 11/24/1999 COVID-19 Vaccine ( - 2023-2 5 season) 2025 Influenza Vaccine (#1) 2025 05/07/2010 Diabetes: Hemoglobin A1C 07/14/2025 025, 12/14/2024 Depression Screening 12/14/2025 12/14/2024, 12/14/2024 Diabetes: Urine Protein Screening 12/14/2025 12/14/2024 Disability Screening 12/14/2025 12/14/2024 Family Planning (PISQ) 12/14/2025 12/14/2024 Alcohol/Substance Use Screening 12/21/2025 12/21/2024 HPV Vaccines (1 - Male 3-dos e series) 12/21/2025 Postponed from 11/24/1995 (Patient Refused) Lipid Panel 04/13/2026 04/13/2025, 12/14/2024 SDOH Screening 04/13/2026 04/13/2025 Tobacco Screening 04/13/2026 04/13/2025 DTaP/Tdap/Td Vaccines (2 - T d or Tdap) 06/22/2027 06/22/2017 Zoster Vaccines (1 of 2) 2030 RSV Patients and Patients Aged 60 years or older (1 - 1-dose 75+ series) 11/24/2055 HIV Screening Completed 12/14/2024 HIB Vaccines Aged Out No longer eligi ble based on patient's age to complete this topic Hepatitis A Vaccines Discontinued Hepatitis B Vaccines Discontinued IPV Vaccines Aged Out No longer eligi ble based on patient's age to complete this topic Meningococcal B Vaccine Aged Out No l onger eligible based on patient's age to complete this topic Meningococcal Vaccine Aged Out No avery starr eligible based on patient's age to complete this topic RSV under 20 months Aged Out No longe r eligible based on patient's age to complete this topic Rotavirus Vaccines Aged Out No longer eligible based on patient's age to complete this topic Procedures Procedure Name Priority Date/Time Associated Diagnosis Comments COMPREHENSIVE METABOLIC PANEL Routine 04/13/2025 10:32 AM EDT Type 2 diabetes mellitus with hyperglycemia, without long-term current use of insulin (HCC) LIPID PANEL, STANDARD Routine 04/13/2025 10:32 AM EDT Type 2 diabetes mellitus with hyperglycemia, without long-term current use of insulin ([facility]) Hypertriglyceridem ia TSH REFLEX ON ABNORMAL TO FREE T4 Routine 04/13/2025 10:32 AM EDT Type 2 diabetes mellitus with hyperglycemia, without long-term current use of insulin ([facility]) POCT GLYCOSYLATED HEMOGLOBIN (HGB A1C) Routine 04/13/2025 9:27 AM EDT Type 2 diabetes mellitus with hyperglycemia, without long-term current use of insulin ([facility]) HIV P24 ANTIGEN/ANTIBODY WITH REFLEX TO CONFIRMATION Routine 12/14/2024 10:15 AM EDT History of hepatitis C ALBUMIN/CREATININE RATIO, RANDOM URINE Routine 12/14/2024 12:00 AM EDT HTN, goal below 130/80 from Last 3 Months or Most Recently Relevant to Health Maintenance Results * TSH w/Reflex to Free T4 if TSH Abnormal (04/13/2025 10:32 AM EDT) TSH 1.020 0.450 - 4.500 uIU/mL [facility] Blood Venous blood specimen / Unknown 04/13/2025 10:32 AM EDT 04/13/2025 Narrative Resulting Agency Comment Performed at: - [address] [id number] Dough Mixer Operator: Jaylene Lamar MD, Phone: [phone] Shanthi Lewis BLADE CHANGER LAB BLOOD ORDERABLES Final Res ult Performing Organization Address [facility] Co de Phone Number [facility] [address] [place] [address] * (ABNORMAL) Lipid Panel, Standard (04/13/2025 10:32 AM EDT) Cholesterol, Total 169 100 - 199 mg/dL [facility] Comment: Chol/HDL 4.3 0.0-5.0 N RISK MEN RATIO WOMEN RATIO ==== ==== ==== 1/2 AVERAGE 1.00 1.50 AVERAGE 3.60 3.20 2X AVERAGE 6.30 5.00 3X AVERAGE 8.00 6.10 Chol Trig Ratio 1 N Triglycerides 332(H) 0 - 149 mg/dL [facility] HDL Cholesterol 39(L) 40 - 59 mg/dL [facility] VLDL Cholesterol Sharif 66(H) 5 - 40 mg/dL [facility] LDL Chol Calc (NIH) 64 0 - 130 mg/dL [facility] Comment: The calculation for LDLcholesterol is not valid when triglycerides exceed 400 mg/dL. Alternately, Direct LDL is available if clinically indicated. Blood Venous blood specimen / Unknown 04/13/2025 10:32 AM EDT 04/13/2025 Narrative Resulting Agency Comment Performed at: - [address] [id number] Dough Mixer Operator: Kayla Boston MD, Phone: [phone] Shanthi Lewis BLADE CHANGER LAB BLOOD ORDERABLES Final Res ult Performing Organization Address [facility]/ZIP Co de Phone Number [email or web address] [address] [place] [address] * (ABNORMAL) Comprehensive Metabolic Panel (04/13/2025 10:32 AM EDT) Glucose 268(H) 65 - 99 mg/dL [facility] Urea Nitrogen (BUN) 15 5 - 26 mg/dL [facility] Creatinine, Serum 0.92 0.50 - 1.50 mg/dL [facility] eGFR >90 >=90 mL/min/1.7 3m2 [facility] BUN/Creatinine Ratio 16 8 - 27 [facility] Sodium 136 134 - 144 mEq/L [facility] Potassium 4.6 3.6 - 5.6 mEq/L [facility] Chloride 96 96 - 109 mEq/L [facility] Anion Gap 11.0 8.0 - 15.0 [facility] Carbon Dioxide 29 20 - 32 mEq/L [facility] Comment:Osmolality Calc 292 mmol/kg 275-305 N Calcium 9.5 8.3 - 10.0 mg/dL [facility] Protein, Total 7.4 6.0 - 8.5 g/dL [facility] Albumin 4.4 3.5 - 5.5 g/dL [facility] Globulin 3.0 1.5 - 4.5 g/dL [facility] Albumin/Globulin Ratio 1.5 1.1 - 2.5 [facility] Bilirubin, Total 0.2 0.1 - 1.2 mg/dL [facility] Comment: Premature Full Term Cord <2.0 <2.0 0-1d <8.0 <8.0 1-2d <12.0 <8.0 3-5d <16.0 <12.0 5-10d <2.0 0.2-1.0 >10d <2.0 0.2-1.0 Alkaline Phosphatase 79 25 - 150 U/L [facility] AST 31 0 - 55 U/L [facility] ALT 54(H) 0 - 44 U/L [facility] Blood Venous blood specimen / Unknown 04/13/2025 10:32 AM EDT 04/13/2025 Narrative Resulting Agency Comment Performed at: - [facility] [id number] Dough Mixer Operator: Kayla Boston MD, Phone: [phone] us Shanthi Lewis NP LAB BLOOD ORDERABLES Final Res ult [facility] [address] [address] * (ABNORMAL) POCT A1C (manually Enter/Edit Results) (04/13/2025 9:27 AM EDT) Hemoglobin A1C 11.2(A) 4.0 - 5.7 % Blood Capillary blood specimen / Unknown 04/13/2025 9:27 AM EDT Joann SINGHP POINT OF CARE TEST ENTER/ EDIT ORDERABLES Final Result * HIV p24 Antigen/Antibody With Reflex to Confirmation (12/14/2024 10:15 AM EDT) HIV Ab/p24 Ag Screen Non Reactive Non Reactive [facility] 1 Comment: HIV-1/HIV-2 antibodies and HIV-1 p24 antigen were NOT detected. There is no laboratory evidence of HIV infection. HIV Negative Blood Venous blood specimen / Unknown 12/14/2024 10:15 AM EDT 12/14/2024 Narrative [facility] 1 - 12/15/2024 6:05 AM EDT Specimen Comment: Called/faxed to CHEYENNE Matthews RN on 12/14/2024 at 15:44 ET for Specimen Comment: test Glucose Specimen Comment: Test(s) Glucose called to cheyenne matthews rn on 12/14/2024 at Specimen Comment: 16:45 EST Resulting Agency Comment Performed at: - [address] [id number] Dough Mixer Operator: Jaylene Lamar MD, Phone: [phone] us Tania Bassett MD LAB BLOOD ORDERABLES Final Resu lt [facility] 1 * Albumin/Creatinine Ratio, Random Urine (12/14/2024 12:00 AM EDT) Creatinine, Random Urine 38.6 Not Estab. mg/dL [facility] 1 Albumin, Urine 3.6 Not Estab. ug/mL [facility] 2 Albumin/Creatini ne Ratio 9 0 - 29 mg/g creat [facility] 2 Comment: Normal: 0 - 29 Moderately increased: 30 - 300 Severely increased: >300 Urine (Urine, Random) 12/14/2024 12/14/2024 Comment:Urine, Random Releas e Narrative Resulting Agency Comment Performed at: - [facility] [address] [id number] Dough Mixer Operator: Harish Estrella MD, Phone: [phone] Performed at: [facility] [id number] Dough Mixer Operator: Jaylene Lamar MD, Phone: [phone] Shanthi Lewis NP LAB URINE ORDERABLES Final Res ult [facility] 2 [facility] 1 from Last 3 Months or Most Recently Relevant to Health Maintenance Insurance [facility] C3 Care Teams Alteration Workroom Supervisor Relationship Specialty Start Date End Date Joann Hardy AGNP [address] [place] [phone] PCP - General Internal Medicine 12/14/24 VIRAL OLIVIA Linux Engineer 10/13/24
--- OUTSIDE RECORDS SUMMARY | 2025-04-18 11:32 | XMS_ITS | Patient Health Record ---
Author Organization [facility] Address [address] [place] [address] Care Team Providers Care Concert Or Lecture Hall Manager Name Role Phone NO, PCP Primary Care Provider [phone] Roro Navarro Unavailable Reason For Referral No Information Social History Sex Assigned At : Social History Observation Description Sex Assigned At Male Encounters Encounter Location Date Provider Diagnosis [facility] [address] [place], [place] [phone] 01/04/2025 Roro Navarro Plan Of Treatment No Information Insurance Providers Payer Name Payer Address Payer Phone Subscriber Number Group Number Insured Name Patient Relationship to Insured Coverage Start Date Coverage End Date [place] [address] [place] [address] Yomi Holly Self - patient is the insured
== END 2025-04-18 10:29 | disposition home or self-care (01) ==
LOC: HO.HGS 10:00
DX: L05.91 Pilonidal cyst without abscess (principal)
CPT/HCPCS: 99204

== ENCOUNTER → 2025-04-18 10:00 | Outpatient (BNVA) | payer OTHER, MEDICAID, SELFPAY | DX: Z01.818 Encounter for other preprocedural examination (principal); L05.91 Pilonidal cyst without abscess | CPT/HCPCS: 99212 ==